=== PATIENT | male | born 1995 | race Caucasian/White ===

== ENCOUNTER 2020-06-23 07:21 | Emergency (ER) | payer OTHER ==
[~2020-06-23] VITALS: Ht 172.7 cm; Wt 56.7 kg
[~2020-06-23 07:21] MED LIST: ALBU90OI; ALBU90OI INH; ATOM10; Bactrim Ds Tab1 EACH PO; CEPH500 PO; CYCL10 PO; MUPI2TC TOP; Veetids 500500 MG PO
[2020-06-23] MEDS ORDERED: LAMO25 (07:34)
[2020-06-23] MEDS ORDERED: TIZANIDINE HCL2 M3 PO (07:34)
[2020-06-23] MEDS ORDERED: CYCL10 PO (09:09)
== END 2020-06-23 09:15 | disposition home or self-care (01) ==
LOC: ER 07:21
DX: M54.6 Pain in thoracic spine (principal); Z79.899 Other long term (current) drug therapy; V47.5XXA Car driver injured in collision with fixed or stationary object in traffic accident, initial encounter; Y92.410 Unspecified street and highway as the place of occurrence of the external cause
CPT/HCPCS: 71046; 96374; 99283-25; J1885

== ENCOUNTER 2024-12-26 10:58 | Emergency (ER) | payer BC ==
[~2024-12-26] VITALS: Ht 170.2 cm; Wt 61.2 kg
[~2024-12-26 10:58] MED LIST changes: +LAMO25; +TIZANIDINE HCL2 M3 PO
[2024-12-26 13:12] VITALS: BP 118/81
== END 2024-12-26 13:12 | disposition home or self-care (01) ==
LOC: ER 10:58
DX: S02.2XXA Fracture of nasal bones, initial encounter for closed fracture (principal); J34.2 Deviated nasal septum; F17.290 Nicotine dependence, other tobacco product, uncomplicated; Y04.8XXA Assault by other bodily force, initial encounter; Z79.899 Other long term (current) drug therapy
CPT/HCPCS: 70486; 99284-25